=== PATIENT | female | born 2000 | race Caucasian/White ===

== ENCOUNTER 2024-11-04 07:53 | Outpatient (REF) | payer OTHER, SELFPAY ==
--- NOTE | ~2024-11-04 | XR_ITS ---
EXAMINATION: XR HAND 3 OR MORE VIEWS RIGHT HISTORY: M79.641 - Pain in right hand COMPARISON: There are no prior studies available for comparison. FINDINGS: Three views of the right hand are submitted. Osseous mineralization is normal. There is no fracture or dislocation. The joint spaces are preserved. The soft tissues are unremarkable. XR/XR hand RT min 3V IMPRESSION: Unremarkable examination of the right hand. Electronically signed by: Israel Lainez MD 11/04/2024 09:11 AM EDT
== END 2024-11-04 07:54 | disposition home or self-care (01) ==
LOC: HO.HOSX 07:53
DX: M79.641 Pain in right hand (principal); S67.21XA Crushing injury of right hand, initial encounter
CPT/HCPCS: 73130; 99212

== ENCOUNTER 2024-11-04 08:47 | Outpatient (AMB) | payer OTHER, SELFPAY ==
--- NOTE | 2024-11-04 09:20 | MHC.OFFVIS ---
Vital Signs 11/04/24 09:25 Height 5 ft 9 in Weight 280 lb BMI 41.3 Intake Visit Reasons: INFANT CHILDCARE PROVIDER-Right hand injury DOI: 10/10/34 Intake Note: Suyapa is a 24 year old right hand dominant female who presents today as a new patient with complaints of right hand pain. While at work on 10/10/24 her hand was crushed. Patient has been seen by urgent care and PCP where she was given a wrist brace, instructed not to use her arm for 2 weeks. Patient reports today pain is located on the dorsal aspect of the right hand, above her knuckles. Patient denies numbness, tingling, or finger locking. Patient denies prior injuries or surgeries to the right hand. Allergies cephalexin Allergy (Severe, Verified 11/04/24 09:25) Hives drospirenone Allergy (Severe, Verified 11/04/24 09:25) Hives ondansetron [From Zofran] Allergy (Severe, Verified 11/04/24 09:25) vertigo bupropion [From Wellbutrin] Adverse Reaction (Severe, Verified 11/04/24 09:25) manic episode HPI HPI INFANT CHILDCARE PROVIDER-Right hand injury DOI: 10/10/34: Details: Suyapa is a 24 year old right hand dominant female who presents today as a new patient with complaints of right hand pain. While at work on 10/10/24 her hand was crushed. Patient has been seen by urgent care and PCP where she was given a wrist brace, instructed not to use her arm for 2 weeks. Patient reports today pain is located on the dorsal aspect of the right hand, above her knuckles. Patient denies numbness, tingling, or finger locking. Patient denies prior injuries or surgeries to the right hand. [facility] Social History (Updated 11/04/24 @ 09:25 by GUANAKITO Lizarraga) Patient Tobacco Use Status: Never used Tobacco Current occupational status: employed Current occupation: rt handed, admin asistant Review of Systems Const All systems reviewed & are unremarkable except as noted in HPI and below Physical Exam Vital Signs: BMI result Body Mass Index 41.3 Extrem Other: Patient is alert, oriented, and in no acute distress. Neuro: Normal sensation of the tips of all digits of the right hand at this time Vascular: Cap refill brisk Pain: No tenderness to palpation about the right hand No tenderness to palpation of radial styloid, ulnar styloid, anatomical snuffbox, DRUJ, 1st dorsal compartment, or elsewhere on the right wrist ROM: Patient is able to make a closed fist and extend all digits of the right hand fully Patient has a proximally 80 degrees of both flexion and extension of the right wrist 90 degrees of pronation 90 degrees of supination Skin: No lacerations or abrasions. General: No ecchymosis, erythema, or evidence of infection. Psych: Appears grossly normal Affect normal Attitude cooperative Results Reviewed Results Reviewed: X-rays obtained in the office today and independently reviewed by me, Pollo Ceron PA-C, demonstrate no fracture or acute bony abnormality of the right hand or wrist. Assessment & Plan Assessment & Plan (1) Crushing injury of right hand: Code(s): S67.21XA - Crushing injury of right hand, initial encounter Category: Medical Plan 1. Crush injury of right hand Date of injury 10/10/2024 Patient is educated about this injury Patient was educated about the typical treatment course At this time, patient was informed that there is no acute intervention indicated at this time, as she appears to be recovering very well from her injury Patient was offered a referral to occupational therapy, but states she does not feel she needs this at this time Patient can gradually return back to full normal activity over the next 3-4 weeks Patient will follow-up as needed with any acute concerns Orders: Orders XR hand RT min 3V Today M79.641 - Pain in right hand Coding Level of Care Code Est Pt Level 3 (42571) Diagnoses Crushing injury of right hand S67.21XA
[2024-11-04 09:25] VITALS: BMI 41.3
== END 2024-11-04 09:39 | disposition home or self-care (01) ==
LOC: HO.HOS 08:47
PROVIDERS: PCP Family Medicine
DX: S67.21XA Crushing injury of right hand, initial encounter (principal); Z04.2 Encounter for examination and observation following work accident
CPT/HCPCS: 99213

== ENCOUNTER → 2024-11-04 08:58 | Outpatient (BNV) | payer OTHER, SELFPAY | PROVIDERS: Visit Provider Radiology Diagnostic Radiology | DX: M79.641 Pain in right hand (principal) | CPT/HCPCS: 73130 ==

== ENCOUNTER 2025-02-28 07:46 | Outpatient (REF) | payer OTHER, SELFPAY ==
--- OUTSIDE RECORDS SUMMARY | 2025-02-28 07:49 | XMS_ITS | Clinical Summary ---
Author Organization [facility] [employer] Address [address] [place] [address] Phone Care Team Providers Care Husbandry Person Name Role Phone Svetlana Calixto Primary Care Provider [phone] Allergies Active Allergy Reactions Criticality Noted Date Comments Bupropion 05/30/2024 Cephalexin 05/30/2024 Drospirenone 05/30/2024 Ondansetron 05/30/2024 Medications levonorgestreL (MIRENA) 21 mcg/24hr (up to 8 yrs) 52 mg IUD by Intrauterine route. Active sertraline (ZOLOFT) 100 mg tablet Take 1 tablet (100 mg total) by mouth 1 (one) time each day. Active cetirizine HCl (ZYRTEC ORAL) Take by mouth. A ctive FLUTICASONE FUROATE NASL by Nasal route. A ctive EPINEPHRINE HCL INJ Inject as directed. Active prochlorperazin e maleate (COMPAZINE ORAL) Take 5 mg by mouth as needed. Active OMEPRAZOLE ORAL Take 20 mg by mouth daily. Active albuterol sulfate (ProAir RespiClick) 90 mcg/actuation aerosol powdr breath activated Inhale into the lungs. Active multivitamin (MULTIPLE VITAMINS ORAL) Take by mouth. Active APPLE CIDER VINEGAR ORAL Take by mouth. Ac tive fluticasone/jay anterol (BREO ELLIPTA INHL) Inhale by mouth. Active propranolol LA (Inderal LA) 60 mg 24 hr capsuleIndicati ons:POTS (postural orthostatic tachycardia syndrome) Take 1 capsule (60 mg total) by mouth 1 (one) time each day. Do not crush, chew, or split. 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 Her overall impression is a symptomatic response to elevated heart rates rather than blood pressure drops. She has been adherent with compression stockings, fluid and electrolyte intake and avoid triggers. We will trial propranolol 60 mg daily. I did review side effects especially to avoid this medication when . Orders: ECG 12 lead propranolol LA (Inderal LA) 60 mg 24 hr capsule; Take 1 capsule (60 mg total) by mouth 1 (one) time each day. Do not crush, chew, or split. Dizziness 05/26/2024 Encounters Date Type Department Care Team Description 02/02/2025 8:10 AM EDT Office Visit [facility] [address] [place] [address] Khari Hoffman NP POTS (postural orthostatic tachycardia syndrome) (Primary Dx) from Last 3 Months Medical History Medical History Date Comments ADHD (attention deficit hype ractivity disorder), combined type DX:ADHD (attention deficit h yperactivity disorder), combined type Asthma DX:Asthma Environmental allergies DX:Envir onmental allergies Social History Tobacco Use Types Packs/Day Years Used Date Smoking Tobacco: Never Smokeless Tobacco: Never Tobacco Cessation:Counseling Given: Not Answered Alcohol Use Standard Drinks/Week Comments Never 0 (1 standard drink = 0.6 oz pur e alcohol) Comments Unknown Sex and Gender Information Value Date Recorded Sex Assigned at Not on file Legal Sex Female 11:06 AM EDT Gender Identity Not on file Sexual Orientation Not on file Obstetrics History Last Filed Vital Signs Vital Sign Reading Time Taken Comments Blood Pressure 126/84 02/02/2025 8:04 AM EDT Pulse 91 02/02/2025 8:04 AM EDT Temperature - - Respiratory Rate - - Oxygen Saturation 98% 02/02/2025 8:04 AM EDT Inhaled Oxygen Concentration - - Weight 125 kg (275 lb) 02/02/2025 8:04 AM EDT Height 175.3 cm (5' 9 ) 02/02/2025 8:04 AM EDT Body Mass Index 40.61 02/02/2025 8:04 AM EDT Plan of Treatment Health Maintenance Due Date Last Done Comments Gonorrhea/Chlamydia Screening 2001 HPV Vaccines (1 - 3-dose series) 2016 Meningococcal B Vaccine (1 of 2 - Standard) 2017 Pneumococcal Vaccine: Pediatrics (0 to 5 Years) and At-Risk Patients (6 to 49 Years) (1 of 2 - PCV) 2020 Cervical Cancer Screening: Pap Smear 2022 Cholesterol Screening (Lipid Panel) 03/03/2024 HIV Screening 03/03/2024 Hepatitis C Screening 03/03/2024 Social Influencers of Health Screening 03/03/2024 COVID-19 Vaccine ( season) 2024 11/29/2020, 11/01/2020 Depression Screening 08/10/2024 Influenza Vaccine (#1) 2025 , 04/28/2023, 05/14/2019 DTaP,Tdap,and Td Vaccines (8 - Td or Tdap) 11/22/2033 11/23/2023, 04/28/2013, 09/09/2005, Additional history exists Hepatitis B Vaccines Completed 01/27/2002, 2001, 2001 HIB Vaccines Completed 10/27/2002, 01/09, 2001, Additional history exists IPV Vaccines Completed 09/09/2005, 04/10, 2001, Additional history exists MMR Vaccines Completed 09/09/2005, 08/02/2002 Varicella Vaccines Completed 05/24/2009, 08/02/2002 Meningococcal ACWY Vaccine Aged Out 12/13/2015 N o longer eligible based on patient's age to complete this topic Hepatitis A Vaccines Aged Out No long er eligible based on patient's age to complete this topic RSV Immunization Patients Under 20 months Aged Out No longer eligible based on patient's age to complete this topic Procedures Procedure Name Priority Date/Time Associated Diagnosis Comments ECG 12-LEAD Routine 02/02/2025 8:42 AM EDT POTS (postural orthostatic tachycardia syndrome) from Last 3 Months Results * ECG 12 lead (02/02/2025 8:42 AM EDT) Ventricular Rate ECG 91 BPM GEMUSE Atrial Rate 91 BPM GEMUSE P-R Interval 128 ms GEMUSE QRS Duration 82 ms GEMUSE Q-T Interval 356 ms GEMUSE QTc 437 ms GEMUSE P Wave [place] 52 degrees GEMUSE R [place] 54 degrees GEMUSE T [place] 17 degrees GEMUSE ECG Interpretation Normal sinus rhythm Normal ECG No previous ECGs available Confirmed by JACQUES PRASAD ([id number]) on 02/05/2025 7:20:10 PM GEMUSE 02/02/2025 8:13 AM EDT 02/05/2025 7:20 PM EDT us Khari Hoffman [employer] ECG ORDERABLES Edited Resu lt - Final GEMUSE from Last 3 Months Insurance [employer] Care Teams Husbandry Person Relationship Specialty Start Date End Date Svetlana Calixto [address] [place] [id number] PCP - General Family Medicine 02/02/25
== END 2025-02-28 07:47 | disposition home or self-care (01) ==
LOC: HO.SH 07:46
PROVIDERS: Visit Provider Nurse Practitioner Primary Care
DX: Z01.118 Encounter for examination of ears and hearing with other abnormal findings (principal); H90.41 Sensorineural hearing loss, unilateral, right ear, with unrestricted hearing on the contralateral side
CPT/HCPCS: 92557